=== PATIENT | female | born 1970 | race Caucasian/White ===

== ENCOUNTER 2016-04-19 07:20 | Day surgery (SDC) | payer MEDICAID ==
[~2016-04-19] VITALS: Ht 162.6 cm; Wt 83.9 kg
[~2016-04-19 07:20] MED LIST: BACLOFEN10 MG PO; CYMBALTA60 MG PO; NEURONTIN 300300 MG PO; RYTHMOL225 MG PO; TOPROL XL25 MG PO; VITAMIN D31000 UNIT PO
[2016-04-19 08:12] LABS: HEMATOCRIT 44.4 % (36.0-48.0); HEMOGLOBIN 14.7 g/dL (12-16); MCH 28.6 pg (26.0-34.0); MCHC 33.1 g/dL (31.0-37.0); MCV 86.4 fL (80.0-100.0); MEAN PLATELET VOLUME 12.2 fL (7.4-10.4); RBC 5.14 10x6/uL (4.00-5.40); RDW 12.8 % (11.5-14.5); WBC 5.5 10x3/uL (4.8-10.8)
[2016-04-19 08:51] VITALS: Ht 162.6 cm; Wt 83.9 kg
--- NOTE | 2016-04-19 13:44 | NUR ---
1344--IV DC'D, PT UP TO DRESS. PAT RN
--- NOTE | 2016-04-19 14:05 | NUR ---
1405--DISCHARGE INSTRUCTIONS TONA PT VERBALIZES UNDERSTANDING. PT OFF UNIT VIA AKILAH. PAT BRISENO
--- NOTE | 2016-05-03 09:50 | OP ---
PATIENT NAME: BERONICA CHI MEDICAL RECORD: [id number] :70 LOCATION:D.OPS ADMISSION DATE: SURGEON: BLANQUITA GAUTHIER DPM DATE OF OPERATION: 04/19/2016 PREOPERATIVE DIAGNOSES: 1. Hallux abducto valgus, left foot. 2. Plantar fascitis, left foot. 3. Spur, left lateral fifth digit. POSTOPERATIVE DIAGNOSES: 1. Hallux abducto valgus, left foot. 2. Plantar fascitis, left foot. 3. Spur, left lateral fifth digit. PROCEDURES: 1. Alex bunionectomy, left foot with 0.062 inch K-wire fixation. 2. Instep plantar fasciotomy, left foot. 3. Spur excision left lateral fifth digit. ANESTHESIA: Local with IV sedation utilizing lidocaine and Marcaine plain, approximately 20 cc total in the ankle block fashion. HEMOSTASIS: Esmarch around the ankle. PREOPERATIVE DETAILS: The patient was taken to the OR, placed on the operating table in supine position. This was followed by induction of general anesthesia and infiltration of local anesthetic. The left extremity was then exsanguinated and the Esmarch was passed around the ankle. PROCEDURE NUMBER 1: Alex bunionectomy, left foot. A 15-blade was used to create a incision on the dorsal aspect of the first MPJ, approximately 4 cm in length. The incision deepened down through subcutaneous tissue to the first MPJ where an inverted L capsulotomy was performed. The medial capsular flap was reflected and the head of the first metatarsal was delivered. A sagittal saw was used to resect the medial eminence. Attention was direct to the first interspace, where a lateral release was then performed. Good clinical reduction of the lateral contractures was verified. Attention was then redirected to the head of the first metatarsal medial aspect, where a sagittal saw was used to create a V osteotomy through and through. The capital fragment was translocated laterally and fixated with a 0.062 inch K-wire. The medial redundant shelf was resected. The pin was cut. Excellent alignment was noted. The wound was flushed. The capsule was repaired with 2-0 Vicryl, the subcutaneous tissue with 4-0 Rapide and the skin was closed with 4-0 Rapide in a subcuticular technique followed by Dermabond. PROCEDURE NUMBER 2: Instep plantar fasciotomy, left foot. A 15-blade was used to create a 1.5 cm incision over the plantar aspect of the left foot just anterior to the weightbearing surface of the heel. The incision was deepened down through subcutaneous tissue bluntly. The plantar fascia was visualized. With the foot held in dorsiflexion and the toes in extension. A 15 blade was used to cut through the plantar fascia allowing approximately 0.8 cm of length in the plantar fascia. The wound was flushed and the skin was closed with 4-0 nylon in a simple interrupted technique. OPERATIVE REPORT [id number] BERONICA CHI PROCEDURE NUMBER 3: Spur excision, left lateral fifth digit. A 15-blade was used to create a 1 cm linear incision over the lateral aspect of the 5th digit at the area of the PIPJ. The incision was deepened down through subcutaneous tissue. A linear periosteal incision was made and the spur was delivered. A rongeur was used to resect the spur, followed by smoothing with a bone rasp. The wound was flushed and the skin was closed with 4-0 Rapide in a simple interrupted technique followed by Dermabond. Adaptic, 4 x 4 and Conform were used to dress the wounds followed by Coban. The Esmarch was removed. POSTOPERATIVE DETAILS: The patient tolerated the procedure well and left the OR with vital signs stable and vascular status at preoperative levels. The patient was transferred to recovery per anesthesia in stable condition. TRANSINT:[id number] Voice Confirmation ID: [id number] DOCUMENT ID: [id number] BLANQUITA GAUTHIER DPM at 0950 CC: [id number] DICTATION DATE: 04/19/16 1206 DISPERSION MIXER: 04/19/16 1222 [facility] 04/19/16 [place] [id number]
== END 2016-04-19 14:05 | disposition home or self-care (01) ==
LOC: D.OPS 07:20 → D.PAN 09:15 → D.OPS 14:05
PROVIDERS: Anesthesiology
DX: M20.12 Hallux valgus (acquired), left foot (principal); M72.2 Plantar fascial fibromatosis; M77.52 Other enthesopathy of left foot and ankle

== ENCOUNTER → 2016-11-29 11:00 | Outpatient (CLI) | payer MEDICAID ==
[2016-04-19 08:51] VITALS: BMI 31.8
--- NOTE | ~2016-11-29 | EEG ---
PATIENT:BERONICA CHI DATE OF SERVICE: 11/29/16 MEDICAL RECORD: [id number] DATE OF : 70 LOCATION: [facility] ADMISSION DATE: 11/29/16 REFERRING PHYSICIAN: INTERPRETING PHYSICIAN: DAMEON BECERRA MD DATE OF SERVICE: 11/29/2016 REFERRED BY: Dr. Zapien in [place], [place] as an outpatient, ELECTROENCEPHALOGRAM NUMBER: [id number] DATE OF EXAMINATION 11/29/2016 at 11:45 a.m. DATE OF : 1970 TECHNICAL DATA: This electroencephalographic recording consists of approximately 20 minutes of data collection utilizing the international 10/20 system of electrode placement and both referential and non-referential montages. Sixteen channels of electrocerebral recording are accompanied by a 17th channel dedicated to the electrocardiographic rhythm and 2 channels of electromyographic recording. Recording is performed in the awake and drowsy states utilizing activation by hyperventilation and photic stimulation. ELECTROENCEPHALOGRAPHIC DATA: The awake state comprises approximately 60% of the recorded electrocerebral activity. Electromyographic artifact is prominent and rapid eye movements are seen. The posterior dominant background consists of a well-developed, symmetric, rhythmic, waxing and waning alpha activity of 8-9 Hz which is suppressed by eye opening. The drowsy state comprises the remaining portion of the recorded electrocerebral activity. Electromyographic artifact is diminished and rapid eye movements are not seen. The posterior dominant background is relatively suppressed. No abnormal or focal slowing is identified. No epileptiform discharges are seen. Hyperventilation and photic stimulation induced no abnormal change in the recorded electrocerebral activity. INTERPRETATION: Normal (awake and drowsy). This is a normal electroencephalographic recording. TRANSINT:[id number] Voice Confirmation ID: [id number] DOCUMENT ID: [id number] DAMEON BECERRA MD CC: [id number] DICTATION DATE: 11/30/16 0635 TECHNICAL ASST: 11/30/16 2238 [facility] CLI 11/29/16 [place] [id number]
== END | disposition home or self-care (01) ==
LOC: D.CN 10:00
DX: M62.40 Contracture of muscle, unspecified site (principal); M62.838 Other muscle spasm